=== PATIENT | male | born 1990 | race Two or more races ===

== ENCOUNTER 2023-08-21 14:29 | Emergency (ER) | payer OTHER ==
[~2023-08-21] VITALS: Ht 175.3 cm; Wt 86.2 kg
[~2023-08-21 14:29] MED LIST: IBUPROFEN800 MG PO; SEPTRA DS TABLE1 TAB PO
[2023-08-21] MEDS ORDERED: TRIAMCINOLONE ACETONIDE 40 MG/ML VIAL IM ONE (17:00)
[2023-08-21] MEDS ORDERED: DICLOFENAC SODI75 MG PO (17:00)
[2023-08-21] MEDS ORDERED: NORFLEX100MG PO (17:00)
[2023-08-21] MEDS ORDERED: KETOROLAC TROMETHAMINE 60 MG VIAL IM ONE (17:00)
== END 2023-08-21 17:16 | disposition home or self-care (01) ==
LOC: ER 14:30
DX: M54.9 Dorsalgia, unspecified (principal)

== ENCOUNTER 2024-11-19 07:21 | Emergency (ER) | payer OTHER ==
[~2024-11-19] VITALS: Ht 175.3 cm; Wt 88.5 kg
[~2024-11-19 07:21] MED LIST changes: +DICLOFENAC SODI75 MG PO; +NORFLEX100MG PO
[2024-11-19] MEDS ORDERED: ESCITALOPRAM OX10 MG (07:50)
[2024-11-19] MEDS ORDERED: ATOMOXETINE HCL40 MG (07:50)
[2024-11-19] MEDS ORDERED: ORPHENADRINE CITRATE 30 MG/ML AMPUL ONE (08:41)
[2024-11-19] MEDS ORDERED: NORFLEX100MG PO (08:42)
[2024-11-19] MEDS ORDERED: KETOROLAC TROMETHAMINE 60 MG VIAL IM ONE ×2 (08:42→08:45)
[2024-11-19] MEDS ORDERED: ORPHENADRINE CITRATE 30 MG/ML AMPUL IM ONE (08:45)
== END 2024-11-19 09:22 | disposition home or self-care (01) ==
LOC: ER 07:21
DX: M54.50 Low back pain, unspecified (principal)

== ENCOUNTER 2025-05-06 09:47 | Emergency (ER) | payer OTHER ==
[~2025-05-06] VITALS: Ht 175.3 cm; Wt 86.2 kg
[~2025-05-06 09:47] MED LIST changes: +ATOMOXETINE HCL40 MG; +ESCITALOPRAM OX10 MG
[2025-05-06] MEDS ORDERED: ORPHENADRINE CITRATE 30 MG/ML AMPUL IM STA (10:29)
[2025-05-06] MEDS ORDERED: KETOROLAC TROMETHAMINE 30 MG VIAL IM STA (10:29)
[2025-05-06] MEDS ORDERED: ZANAFLEX4 MG PO (10:33)
[2025-05-06] MEDS ORDERED: GABAPENTIN100 M2 PO (10:33)
[2025-05-06] MEDS ORDERED: DICLOFENAC SODI50 MG PO (10:33)
[2025-05-06] MEDS ORDERED: KETOROLAC TROMETHAMINE 30 MG VIAL ONE (10:59)
[2025-05-06] MEDS ORDERED: ORPHENADRINE CITRATE 30 MG/ML AMPUL ONE (11:00)
== END 2025-05-06 11:23 | disposition home or self-care (01) ==
LOC: ER 09:48
DX: M54.59 Other low back pain (principal)